=== PATIENT | male | born 1955 | race Caucasian/White ===

== ENCOUNTER 2016-11-07 11:48 | Emergency (ER) | payer BC ==
[~2016-11-07] VITALS: Ht 160 cm; Wt 69.1 kg
[2016-11-07 11:53] VITALS: TEMP 98.3
[2016-11-07 13:16] VITALS: BP 119/81; PULSE 64
[2016-11-07 13:19] LABS: BASO # 0.1 (0.0-0.2); BASO % 1.1 % (0.0-2.0); EOS # 0.4 (0.0-0.7); EOS % 6.9 % (0-4.0); GRAN # 2.6 (1.4-6.5); GRAN % 47.7 % (42.2-75.2); HEMOGLOBIN 15.1 g/dl (13.5-18.0); LYMPH # 1.9 (1.2-3.4); LYMPH % 35.4 % (20.0-51.0); MEAN CELL VOLUME 80 fl (80.0-100.0); MEAN CORPUSCULAR HEMOGLOBIN 26 pg (27.0-31.0); MEAN CORPUSCULAR HGB CONC 33 g/dl (33.0-37.0); MEAN PLATELET VOLUME 8.9 fl (7.4-10.4); MONO # 0.4 (0.1-0.6); MONO % 8.2 % (1.7-9.3); PLATELET COUNT 213 K/mm3 (130-400); RED BLOOD COUNT 5.72 M/mm3 (4.20-5.60); REDCELL DISTRIBUTION WIDTH-CV 12.7 % (11.5-14.5); WHITE BLOOD COUNT 5.4 K/mm3 (4.8-10.8)
[2016-11-07 13:37] LABS: CALCIUM 9.6 mg/dL (8.4-10.2); CREATININE, serum 0.86 mg/dL (0.66-1.25); POTASSIUM 4.3 mmol/L (3.4-5.0)
== END 2016-11-07 14:00 | disposition home or self-care (01) ==
LOC: COL.ER 11:48
PROVIDERS: Physician Assistant
DX: M79.604 Pain in right leg (principal); R20.2 Paresthesia of skin; Z82.49 Family history of ischemic heart disease and other diseases of the circulatory system

== ENCOUNTER → 2018-01-24 | Outpatient (CLI) | payer BC ==
[2018-01-24 18:23] LABS: BASO # 0.1 (0.0-0.2); BASO % 0.8 % (0.0-2.0); EOS # 0.4 (0.0-0.7); EOS % 5.3 % (0-4.0); GRAN # 3.2 (1.4-6.5); GRAN % 48.8 % (42.2-75.2); HEMATOCRIT 43.7 % (42.0-52.0); HEMOGLOBIN 14.3 g/dl (13.5-18.0); LYMPH # 2.5 (1.2-3.4); LYMPH % 37.4 % (20.0-51.0); MEAN CELL VOLUME 82 fl (80.0-100.0); MEAN CORPUSCULAR HEMOGLOBIN 27 pg (27.0-31.0); MEAN CORPUSCULAR HGB CONC 33 g/dl (33.0-37.0); MEAN PLATELET VOLUME 9.8 fl (7.4-10.4); MONO # 0.5 (0.1-0.6); MONO % 7.5 % (1.7-9.3); PLATELET COUNT 242 K/mm3 (130-400); RED BLOOD COUNT 5.36 M/mm3 (4.20-5.60); REDCELL DISTRIBUTION WIDTH-CV 12.9 % (11.5-14.5)
[2018-01-24 18:30] LABS: ALBUMIN 4.7 gm/dL (3.5-5.0); BILIRUBIN,TOTAL 0.4 mg/dL (0.0-1.0); CALCIUM 9.7 mg/dL (8.4-10.2); CHOLESTEROL RISK RATIO 5.6; CREATININE, serum 0.91 mg/dL (0.66-1.25); POTASSIUM 4.1 mmol/L (3.4-5.0); TOTAL PROTEIN 8.3 gm/dL (6.4-8.2)
[2018-01-24 19:00] LABS: TSH w REFLEX 3.16 uIU/mL (0.465-4.680)
[2018-01-24 19:41] LABS: PSA-TOTAL 4.24 ng/mL (0-4)
== END ==
LOC: COL.LAB 18:06
PROVIDERS: Family Medicine
DX: Z12.5 Encounter for screening for malignant neoplasm of prostate (principal); Z13.220 Encounter for screening for lipoid disorders; Z13.1 Encounter for screening for diabetes mellitus; R10.9 Unspecified abdominal pain
CPT/HCPCS: G0103

== ENCOUNTER → 2018-10-02 | Outpatient (CLI) | payer BC ==
[2018-10-02 18:46] LABS: CHOLESTEROL RISK RATIO 3.2
[2018-10-02 19:29] LABS: PSA-TOTAL 5.46 ng/mL (0-4)
== END ==
LOC: ZCOL.LAB 16:19
PROVIDERS: Family Medicine
DX: Z13.1 Encounter for screening for diabetes mellitus (principal); E78.00 Pure hypercholesterolemia, unspecified; R97.20 Elevated prostate specific antigen [PSA]
CPT/HCPCS: G0103

== ENCOUNTER → 2021-07-21 | Outpatient (CLI) | payer BC | LOC: COL.RAD 07:13 | DX: N50.811 Right testicular pain (principal) ==